=== PATIENT | female | born 1970 | race African-American/Black ===

== ENCOUNTER → 2017-06-23 | Outpatient (CLI) | payer MEDICARE, MEDICAID ==
[~2017-06-23] MED LIST: GADOBUTROL 10 MMOL/10 ML VIAL ONE
== END | disposition home or self-care (01) ==
LOC: CFH 10:16
PROVIDERS: ATTEND Student in an Organized Health Care Education/Training Program
DX: R92.2 Inconclusive mammogram (principal); N63 Unspecified lump in breast; Z80.3 Family history of malignant neoplasm of breast
CPT/HCPCS: A9585; C8908